=== PATIENT | male | born 1990 | race Hispanic/Latino ===

== ENCOUNTER 2017-12-16 04:28 | Emergency (ER) | payer OTHER ==
[~2017-12-16] VITALS: Ht 180.3 cm; Wt 106.8 kg
[~2017-12-16 04:28] MED LIST: ACETAMIN500 M1 PO; AMOXICILLIN500 MG PO; AMOXICILLIN875 MG OR; AMOXICILLIN875 MG PO; ASPIRIN81 MG PO; AUGMENTIN875 MG PO; BACTRIM DS1 TAB PO; CARAFATE1 GM PO; DENIES CURRENT MEDS; FIORICE1 PO; FLONASE NASAL50 MCG; HYDROXYZ HCL25 MG PO; KEFLEX500 MG OR; KEFLEX500 MG PO; MOTRIN400 MG/TAB PO; NO; NO HOME MEDS; PRILOSEC20 MG/CAP PO; ROBITUSSIN200 MG/10 PO; SM ASPIRIN ENT325 MG OR; STERAPRED DS10 MG PO; ULTRAM50 M1 PO; ZITHROMAX TRI-P1 TAB PO; ZITHROMAX250 MG PO
[2017-12-16 05:22] LABS: HEMATOCRIT 43.8 % (39.0-50.0); HEMOGLOBIN 15.1 g/dl (14.0-18.0); IMMATURE GRANULOCYTES 0.2 % (0.0-1.0); MEAN CELL VOLUME 84.6 fL CALC (80.0-100.0); MEAN CORPUSCULAR HGB 29.2 pG CALC (26.0-32.0); MEAN CORPUSCULAR HGB CONC 34.5 g/L CALC (32.0-36.0); NEUT# 11.49 thou/uL (1.82-7.42); RED BLOOD COUNT 5.18 mill/uL (4.70-6.10); RED CELL DISTRI WIDTH 12.4 % (11.5-15.5)
[2017-12-16] MEDS ORDERED: AUGMENTIN875TAB PO ×2 (05:52→05:53)
[2017-12-16] MEDS ORDERED: NAPROSYN500 MG PO (05:53)
[2017-12-16 06:06] VITALS: BP 145/89
[2017-12-17] MEDS ORDERED: CLONIDINE0.1 MG PO (20:04)
== END 2017-12-16 06:07 | disposition home or self-care (01) | DRG 153 ==
LOC: ED 04:28
PROVIDERS: Family Medicine
DX: J03.90 Acute tonsillitis, unspecified (principal); F17.210 Nicotine dependence, cigarettes, uncomplicated; I10 Essential (primary) hypertension; J45.909 Unspecified asthma, uncomplicated; R50.9 Fever, unspecified

== ENCOUNTER 2017-12-17 17:32 | Emergency (ER) | payer OTHER ==
[~2017-12-17] VITALS: Ht 180.3 cm; Wt 118.0 kg
[~2017-12-17 17:32] MED LIST changes: +AUGMENTIN875TAB PO; +NAPROSYN500 MG PO
[2017-12-17 18:43] LABS: HEMOGLOBIN 14.7 g/dl (14.0-18.0); IMMATURE GRANULOCYTES 0.5 % (0.0-1.0); MEAN CORPUSCULAR HGB 29.1 pG CALC (26.0-32.0); MEAN CORPUSCULAR HGB CONC 34.2 g/L CALC (32.0-36.0); NEUT# 12.59 thou/uL (1.82-7.42); RED BLOOD COUNT 5.06 mill/uL (4.70-6.10); RED CELL DISTRI WIDTH 13.1 % (11.5-15.5)
[2017-12-17 19:10] LABS: ALBUMIN 4.2 g/dL (3.2-5.0); ANION GAP 17 (6-22 (CALC)); BILIRUBIN, TOTAL 0.5 mg/dL (0.0-1.4); BUN 9 mg/dL (9-20); BUN/CREATININE RATIO 13 (12-20 (CALC)); CARBON DIOXIDE 23 mmol/l (22-30); CHLORIDE 105 mmol/l (95-108); CREATININE 0.7 mg/dL (0.7-1.3); GFR > 60 ML/MIN (>=60 (CALC)); GFR FOR AFR.AMER. > 60 ML/MIN (>=60 (CALC)); POTASSIUM 3.7 mmol/l (3.5-5.1); SGPT/ALT 125 u/l (21-72); SODIUM 142 mmol/l (137-146); TOTAL PROTEIN 8.1 g/dL (6.3-8.2)
[2017-12-17 19:11] LABS: ALKALINE PHOSPHATASE 151 u/l (38-126); SGOT/AST 74 u/l (17-59)
[2017-12-17 19:42] LABS: URINE BILIRUBIN - DIPSTICK NEGATIVE (NEGATIVE); URINE BLOOD DIPSTICK NEGATIVE (NEGATIVE); URINE COLOR YELLOW; URINE GLUCOSE - DIPSTICK NEGATIVE (NEGATIVE); URINE KETONE NEGATIVE (NEGATIVE); URINE LEUK ESTERASE NEGATIVE (NEGATIVE); URINE NITRITE - DIPSTICK NEGATIVE (Negative); URINE PROTEIN - DIPSTICK NEGATIVE (NEG-TRACE); URINE SPECIFIC GRAVITY 1.015; URINE UROBILINOGEN - DIPSTICK 0.2 E.U./dL (0.2)
[2017-12-17 19:43] LABS: URINE CLARITY CLEAR
[2017-12-17 19:44] LABS: BARBITURATES NEGATIVE (NEGATIVE); COCAINE NEGATIVE (NEGATIVE); METHADONE NEGATIVE (NEGATIVE); OXCYCODONE NEGATIVE (NEGATIVE); TETRAHYDROCANNABIONOL NEGATIVE (NEGATIVE); TRICYLIC ANTIDEPRESSANTS NEGATIVE (NEGATIVE)
[2017-12-17] MEDS ORDERED: CLONIDINE0.1 MG PO (20:04)
[2017-12-17 20:15] VITALS: BP 176/99
== END 2017-12-17 20:20 | disposition home or self-care (01) | DRG 153 ==
LOC: ED 17:32
PROVIDERS: Emergency Medicine
DX: J02.9 Acute pharyngitis, unspecified (principal); F17.210 Nicotine dependence, cigarettes, uncomplicated; I88.9 Nonspecific lymphadenitis, unspecified; R05 Cough; R50.9 Fever, unspecified; I10 Essential (primary) hypertension; J45.909 Unspecified asthma, uncomplicated

== ENCOUNTER 2018-01-06 20:44 | Emergency (ER) | payer OTHER ==
[~2018-01-06] VITALS: Ht 180.3 cm; Wt 106.6 kg
[~2018-01-06 20:44] MED LIST changes: +CLONIDINE0.1 MG PO
[2018-01-06] MEDS ORDERED: HYDROXYZ HCL25 MG PO (21:05)
[2018-01-06] MEDS ORDERED: PEPCID20 MG PO (21:05)
[2018-01-06] MEDS ORDERED: PREDNISONE10 MG PO (21:05)
[2018-01-06 21:25] VITALS: BP 162/86
== END 2018-01-06 21:27 | disposition home or self-care (01) | DRG 607 ==
LOC: ED 20:44
DX: L50.9 Urticaria, unspecified (principal); I10 Essential (primary) hypertension; J45.909 Unspecified asthma, uncomplicated; F17.210 Nicotine dependence, cigarettes, uncomplicated; R21 Rash and other nonspecific skin eruption

== ENCOUNTER 2018-02-25 19:09 | Emergency (ER) | payer OTHER ==
[~2018-02-25] VITALS: Ht 180.3 cm; Wt 95.0 kg
[~2018-02-25 19:09] MED LIST changes: +PEPCID20 MG PO; +PREDNISONE10 MG PO
[2018-02-25 19:32] VITALS: BP 120/62
== END 2018-02-25 20:21 | disposition left against medical advice (07) ==
LOC: ED 19:09
DX: R51 Headache (principal); I10 Essential (primary) hypertension; J45.909 Unspecified asthma, uncomplicated; F17.210 Nicotine dependence, cigarettes, uncomplicated; Z91.19 Patient's noncompliance with other medical treatment and regimen; Z91.14 Patient's other noncompliance with medication regimen

== ENCOUNTER 2022-07-20 11:15 | Emergency (ER) | payer OTHER ==
[~2022-07-20] VITALS: Ht 180.3 cm; Wt 118.2 kg
[2022-07-20] MEDS ORDERED: LISINOPRIL5 MG PO (11:49)
[2022-07-20] MEDS ORDERED: LISINOPRIL10 MG PO (11:50)
[2022-07-20] MEDS ORDERED: AMOXICILLIN500 M2 PO (13:05)
[2022-07-20] MEDS ORDERED: PROVENTIL HFA108 MCG PO (13:05)
[2022-07-20 13:30] VITALS: BP 130/83
== END 2022-07-20 13:30 | disposition home or self-care (01) ==
LOC: ED 11:15
DX: U07.1 COVID-19 (principal); R05.9 Cough, unspecified; I10 Essential (primary) hypertension; F17.200 Nicotine dependence, unspecified, uncomplicated

== ENCOUNTER 2022-09-30 07:36 | Emergency (ER) | payer OTHER ==
[~2022-09-30] VITALS: Ht 180.3 cm; Wt 53.7 kg
[2022-09-30] VITALS (9 sets, daily range): BP systolic 116–144; BP diastolic 66–82
[~2022-09-30 07:36] MED LIST changes: +AMOXICILLIN500 M2 PO; +LISINOPRIL10 MG PO; +LISINOPRIL5 MG PO; +PROVENTIL HFA108 MCG PO
[2022-09-30 08:14] LABS: BASO% 0.7 % (0-3); EOS% 1.7 % (0-8); HEMOGLOBIN 14.2 g/dl (14.0-18.0); LYMPH% 36.6 % (15-41); MEAN CORPUSCULAR HGB 27.7 pG CALC (26.0-32.0); MONO% 8.4 % (2-13); NEUT# 2.12 thou/uL (1.82-7.42); NEUT% 52.6 % (42-76); RED BLOOD COUNT 5.12 mill/uL (4.70-6.10); RED CELL DISTRI WIDTH 12.5 % (11.5-15.5)
[2022-09-30 08:36] LABS: ALBUMIN 4.5 g/dL (3.2-5.0); ANION GAP 10 (6-22 (CALC)); BILIRUBIN, TOTAL 0.3 mg/dL (0.2-1.3); BUN 19 mg/dL (9-20); BUN/CREATININE RATIO 22 (12-20 (CALC)); CARBON DIOXIDE 26 mmol/l (22-30); CHLORIDE 106 mmol/l (95-108); CREATININE 0.9 mg/dL (0.7-1.3); GFR FOR AFR.AMER. > 60 ML/MIN (>=60 (CALC)); GFR OTHER RACES > 60 ML/MIN (>=60 (CALC)); POTASSIUM 3.7 mmol/l (3.5-5.1); SGOT/AST 34 u/l (17-59); SODIUM 139 mmol/l (137-146); TOTAL PROTEIN 7.8 g/dL (6.3-8.2)
[2022-09-30 08:49] LABS: ALKALINE PHOSPHATASE 70 u/l (38-126)
[2022-09-30 09:08] LABS: TSH, 3RD GENERATION 0.99 uIU/mL (0.47 - 4.68)
== END 2022-09-30 09:50 | disposition home or self-care (01) ==
LOC: ED 07:36
PROVIDERS: Family Medicine
DX: R00.2 Palpitations (principal); R07.9 Chest pain, unspecified; I10 Essential (primary) hypertension

== ENCOUNTER 2023-09-08 08:05 | Emergency (ER) | payer OTHER ==
[~2023-09-08] VITALS: Ht 180.3 cm; Wt 117.0 kg
[2023-09-08] VITALS (8 sets, daily range): BP systolic 126–151; BP diastolic 83–107
[2023-09-08] MEDS ORDERED: ZPAK PO (10:18)
[2023-09-08] MEDS ORDERED: AMOX/K CLAV875 M1 PO (10:18)
== END 2023-09-08 11:21 | disposition home or self-care (01) ==
LOC: ED 08:05
DX: S51.851A Open bite of right forearm, initial encounter (principal); I10 Essential (primary) hypertension; W55.01XA Bitten by cat, initial encounter

== ENCOUNTER 2024-03-23 05:01 | Emergency (ER) | payer SELFPAY ==
[~2024-03-23] VITALS: Ht 180.3 cm; Wt 117.0 kg
[~2024-03-23 05:01] MED LIST changes: +AMOX/K CLAV875 M1 PO; +ZPAK PO
[2024-03-23] MEDS ORDERED: HYDROcodone/Acetaminophen 1 COMBO TAB PO ONE (05:35)
[2024-03-23] MEDS ORDERED: CLINDAMYCIN HCL 150 MG CAP PO ONE (05:35)
[2024-03-23] MEDS ORDERED: VENTOLIN HFA108 MCG IN (05:38)
[2024-03-23] MEDS ORDERED: LORTAB5 PO (05:41)
[2024-03-23] MEDS ORDERED: CLINDAMYCIN300 M1 PO (05:42)
[2024-03-23 06:16] VITALS: BP 138/91
== END 2024-03-23 06:30 | disposition home or self-care (01) | DRG 159 ==
LOC: ED 05:01
DX: K01.1 Impacted teeth (principal); I10 Essential (primary) hypertension; J44.9 Chronic obstructive pulmonary disease, unspecified

== ENCOUNTER 2024-04-26 14:10 | Emergency (ER) | payer SELFPAY ==
[2024-04-26] VITALS (11 sets, daily range): BP systolic 109–158; BP diastolic 58–104
[~2024-04-26] VITALS: Ht 180.3 cm; Wt 118.0 kg
[~2024-04-26 14:10] MED LIST changes: +CLINDAMYCIN300 M1 PO; +LORTAB5 PO; +VENTOLIN HFA108 MCG IN
[2024-04-26 15:14] LABS: BASO% 0.5 % (0-3); EOS% 3.1 % (0-8); HEMATOCRIT 41.8 % (39.0-50.0); HEMOGLOBIN 14.3 g/dl (14.0-18.0); IMMATURE GRANULOCYTES 0.2 % (0.0-5.0); LYMPH% 43.3 % (15-41); MEAN CELL VOLUME 83.4 fL CALC (80.0-100.0); MEAN CORPUSCULAR HGB 28.5 pG CALC (26.0-32.0); MEAN CORPUSCULAR HGB CONC 34.2 g/dL CAL (32.0-36.0); MONO% 7.7 % (2-13); NEUT# 2.74 thou/uL (1.82-7.42); NEUT% 45.2 % (42-76); RED BLOOD COUNT 5.01 mill/uL (4.70-6.10); RED CELL DISTRI WIDTH 12.3 % (11.5-15.5)
[2024-04-26 15:28] LABS: ALBUMIN 4.6 g/dL (3.2-5.0); ALKALINE PHOSPHATASE 69 u/l (38-126); ANION GAP 9 (6-22 (CALC)); BUN 18 mg/dL (9-20); BUN/CREATININE RATIO 21 (12-20 (CALC)); CARBON DIOXIDE 24 mmol/l (22-30); CHLORIDE 112 mmol/l (95-108); CREATININE 0.8 mg/dL (0.7-1.3); ESTIMATED GFR 119 ML/MIN (>=90 (CALC)); LIPASE 106 u/l (23-300); MAGNESIUM 2.2 mg/dL (1.6-2.3); POTASSIUM 3.9 mmol/l (3.5-5.1); SGOT/AST 43 u/l (17-59); SODIUM 141 mmol/l (137-146); TOTAL PROTEIN 7.7 g/dL (6.3-8.2)
[2024-04-26 15:32] LABS: BILIRUBIN, TOTAL 0.7 mg/dL (0.2-1.3); C-REACTIVE PROTEIN < 0.5 mg/dL (0-0.9)
[2024-04-26] MEDS ORDERED: KETOROLAC TROMETHAMINE 30 MG/ML SDV IM ONE (16:20)
[2024-04-26] MEDS ORDERED: DOXYCYCLINE HYCLATE 100 MG/CAP PO ONE (16:25)
[2024-04-26] MEDS ORDERED: VIBRAMYCIN100 M2 PO (16:51)
[2024-04-26] MEDS ORDERED: NAPROXEN500 MG PO (16:51)
== END 2024-04-26 17:03 | disposition home or self-care (01) | DRG 556 ==
LOC: ED 14:10
PROVIDERS: Nurse Practitioner
DX: M79.672 Pain in left foot (principal); I10 Essential (primary) hypertension